=== PATIENT | male | born 1955 | race Caucasian/White ===

== ENCOUNTER 2018-01-05 07:35 | Inpatient (IN) | payer BC ==
[2018-01-05] MEDS ORDERED: Sodium Chloride 0.9% 2.5 ML Syringe FLUSH PRN (07:38)
[2018-01-05] MEDS ORDERED: Sodium Chloride 0.9% 10 ML Syringe FLUSH PRN (07:38)
--- NOTE | 2018-01-05 07:54 | EDM.PDOC ---
ED HPI GENERAL MEDICAL PROBLEM - General Chief Complaint: Neuro Symptoms/Deficits Stated Complaint: POSSIBLE STROKE Time Seen by Provider: 01/05/18 07:39 Source of Information: Reports: Patient History Limitations: Reports: No Limitations - History of Present Illness INITIAL COMMENTS - FREE TEXT/NARRATIVE: History of present illness: []Patient was in his usual state of health last night when he went to bed at 10 PM and awoke at 5:30 with right-sided visual loss, he also complains of right arm numbness and tingling and right leg weakness Review of systems: As per history of present illness and below otherwise all systems reviewed and negative. Past medical history: As per history of present illness and as reviewed below otherwise noncontributory. Surgical history: As per history of present illness and as reviewed below otherwise noncontributory. Social history: No reported history of drug or alcohol abuse. Family history: As per history of present illness and as reviewed below otherwise noncontributory. Physical exam: General: Well developed, well nourished in NAD HEENT: Atraumatic, normocephalic, pupils reactive, negative for conjunctival pallor or scleral icterus, mucous membranes moist, throat clear, neck supple, nontender, trachea midline. Lungs: Clear to auscultation, breath sounds equal bilaterally, chest nontender. Heart: S1S2, regular, negative for clicks, rubs, or JVD. Abdomen: Soft, nondistended, nontender. Negative for masses or hepatosplenomegaly. Negative for costovertebral tenderness. Pelvis: Stable nontender. Genitourinary: Deferred. Rectal: Deferred. Extremities: Atraumatic, negative for cords or calf pain. Neurovascular unremarkable. Neuro: Awake, alert, oriented. Patient is unable to see the right peripheral vision out of his right eye, he has no ocular paralysis noted there is a drift of his right arm sensations intact Diagnostics: []CT is negative, CT angiogram shows occlusion of right vertebral and posterior cerebral arteries Therapeutics: []Dr. Tompkins was consulted and evaluated the patient bedside. CTA was ordered and resulted prior to her leaving she would like the patient to be admitted with regular stroke orders will be consulting Impression: []CVA Plan: []Admit to Dr. Muñoz Definitive disposition and diagnosis as appropriate pending reevaluation and review of above. - Related Data Allergies Allergy/AdvReac Type Severity Reaction Status Date / Time No Known Allergies Allergy Verified 01/05/18 07:56 Social & Family History - Tobacco Use Smoking Status *Q: Never Smoker Second Hand Smoke Exposure: No - Caffeine Use Caffeine Use: Reports: Other ED ROS GENERAL - Review of Systems Review Of Systems: See Below (See history of present illness) ED EXAM, NEURO - Physical Exam Exam: See Below (See history of present illness) Course - Vital Signs Last Recorded V/S: Last Vital Signs Temp 97.1 F 01/05/18 12:54 Pulse 73 01/05/18 12:54 Resp 18 01/05/18 12:54 BP 119/97 H 01/05/18 12:54 Pulse Ox 93 L 01/05/18 12:54 - Orders/Labs/Meds Orders: Active Orders 24 hr Category Date Time Status Assess Neurological Status [RC] Q4H Care 01/05/18 07:38 Active Bedrest [RC] ASDIRECTED Care 01/05/18 07:38 Active Cardiac Monitoring [RC] . DIRECTED Care 01/05/18 07:38 Inactive NIH Stroke Scale [RC] Q4H Care 01/05/18 07:38 Active Oxygen Therapy [RC] ASDIRECTED Care 01/05/18 07:38 Active Vital Signs [RC] Q4H Care 01/05/18 07:38 Active Brain wo Cont [MR] Stat Exams 01/05/18 08:46 Taken Head wo Cont [CT] Stat Exams 01/05/18 07:38 Taken Sodium Chloride 0.9% [Saline Flush] Med 01/05/18 07:38 Active 10 ml FLUSH ASDIRECTED PRN Sodium Chloride 0.9% [Saline Flush] Med 01/05/18 07:38 Active 2.5 ml FLUSH ASDIRECTED PRN Peripheral IV Insertion Adult [OM.PC] Stat Oth 01/05/18 07:38 Ordered Peripheral IV Insertion Adult [OM.PC] Stat Oth 01/05/18 07:38 Ordered Medication Orders Atorvastatin Calcium (Lipitor) 80 mg PO BEDTIME ALONSO Sodium Chloride (Saline Flush) 10 ml FLUSH ASDIRECTED PRN PRN Reason: Keep Vein Open Sodium Chloride (Saline Flush) 2.5 ml FLUSH ASDIRECTED PRN PRN Reason: Keep Vein Open Labs: Laboratory Tests 01/05/18 01/05/1818 Range/Units 07:35 07:35 07:35 WBC 10.25 (4.0-11.0) K/uL RBC 5.33 (4.50-5.90) M/uL Hgb 15.9 (13.0-17.0) g/dL Hct 45.9 (38.0-50.0) % MCV 86.1 (80.0-98.0) fL MCH 29.8 (27.0-32.0) pg MCHC 34.6 (31.0-37.0) g/dL RDW Std Deviation 45.3 (28.0-62.0) fl RDW Coeff of Marcella 15 (11.0-15.0) % Plt Count 233 (150-400) K/uL MPV 11.30 (7.40-12.00) fL Neut % (Auto) 50.9 (48.0-80.0) % Lymph % (Auto) 36.2 (16.0-40.0) % [place] % (Auto) 8.7 (0.0-15.0) % Eos % (Auto) 4.0 (0.0-7.0) % Baso % (Auto) 0.2 (0.0-1.5) % Neut # (Auto) 5.2 (1.4-5.7) K/uL Lymph # (Auto) 3.7 H (0.6-2.4) K/uL Sherman # (Auto) 0.9 H (0.0-0.8) K/uL Eos # (Auto) 0.4 (0.0-0.7) K/uL Baso # (Auto) 0.0 (0.0-0.1) K/uL Nucleated RBC % 0.0 /100WBC Nucleated RBCs # 0 K/uL INR 0.98 APTT 25.2 (18.6-31.3) SEC Sodium 140 (136-148) mmol/L Potassium 3.9 (3.5-5.1) mmol/L Chloride 104 (98-107) mmol/L Carbon Dioxide 28.4 (21.0-32.0) mmol/L BUN 26 H (7.0-18.0) mg/dL Creatinine 1.2 (0.8-1.3) mg/dL Est Cr Clr Drug Dosing 66.24 mL/min Estimated GFR (MDRD) > 60.0 ml/min Glucose 136 H (74-106) mg/dL Calcium 9.6 (8.5-10.1) mg/dL Total Bilirubin 0.7 (0.2-1.0) mg/dL AST 25 (15-37) IU/L ALT 46 (14-63) IU/L Alkaline Phosphatase 69 (46-116) U/L Troponin I < 0.050 (0.000-0.056) ng/mL Total Protein 7.3 (6.4-8.2) g/dL Albumin 4.2 (3.4-5.0) g/dL Globulin 3.1 (2.0-3.5) g/dL Albumin/Globulin Ratio 1.4 (1.3-2.8) TSH 3rd Generation 4.50 H (0.36-3.74) uIU/mL Meds: Medications Generic Name Dose Route Start Last Admin Trade Name Freq PRN Reason Stop Dose Admin Atorvastatin Calcium 80 mg 01/05/18 21:00 Lipitor PO BEDTIME ALONSO Sodium Chloride 10 ml 01/05/18 07:38 Saline Flush FLUSH ASDIRECTED PRN Keep Vein Open Sodium Chloride 2.5 ml 01/05/18 07:38 Saline Flush FLUSH ASDIRECTED PRN Keep Vein Open Departure - Departure Time of Disposition: 11:00 Disposition: Admitted As Inpatient 64 Condition: Fair Clinical Impression: CVA (cerebral vascular accident) Qualifiers: CVA mechanism: occlusion Precerebral and cerebral artery: posterior cerebral artery Laterality of affected vessel: right Qualified Code(s): I63.531 - Cerebral infarction due to unspecified occlusion or stenosis of right posterior cerebral artery - Discharge Information - My Orders Last 24 Hours: My Active Orders 01/05/18 07:38 Assess Neurological Status [RC] Q4H Bedrest [RC] ASDIRECTED Cardiac Monitoring [RC] . DIRECTED NIH Stroke Scale [RC] Q4H Oxygen Therapy [RC] ASDIRECTED Vital Signs [RC] Q4H Head wo Cont [CT] Stat Sodium Chloride 0.9% [Saline Flush] 10 ml FLUSH ASDIRECTED PRN Sodium Chloride 0.9% [Saline Flush] 2.5 ml FLUSH ASDIRECTED PRN Peripheral IV Insertion Adult [OM.PC] Stat Peripheral IV Insertion Adult [OM.PC] Stat 01/05/18 08:46 Brain wo Cont [MR] Stat - Assessment/Plan Last 24 Hours: My Active Orders 01/05/18 07:38 Assess Neurological Status [RC] Q4H Bedrest [RC] ASDIRECTED Cardiac Monitoring [RC] . DIRECTED NIH Stroke Scale [RC] Q4H Oxygen Therapy [RC] ASDIRECTED Vital Signs [RC] Q4H Head wo Cont [CT] Stat Sodium Chloride 0.9% [Saline Flush] 10 ml FLUSH ASDIRECTED PRN Sodium Chloride 0.9% [Saline Flush] 2.5 ml FLUSH ASDIRECTED PRN Peripheral IV Insertion Adult [OM.PC] Stat Peripheral IV Insertion Adult [OM.PC] Stat 01/05/18 08:46 Brain wo Cont [MR] Stat
[2018-01-05 08:20] LABS: CHLORIDE,CL 104 mmol/L (98-107); SODIUM,NA 140 mmol/L (136-148)
--- NOTE | 2018-01-05 09:44 | CT ---
EXAMINATION: CTA head HISTORY: Vision loss COMPARISON: CT head from the same day TECHNIQUE: Axial CT images obtained through the head following the administration of 100 mL of Isovue -370 in the right antecubital fossa. Coronal, sagittal, and MIP reconstructions obtained. FINDINGS: There is no mass, mass effect, or midline shift. No extra-axial fluid collections. Ventricl es and sulci are symmetric. Mucous retention cyst noted within the right maxillary sinus. Mastoid air cells and middle ears are otherwise unremarkable. Orbits and globes are symmetric. The distal internal carotid arteries are normal. The left vertebral artery is patent. The right verte bral artery is occluded. The right PICA is not identified. The left posterior cerebral artery is occl uded at the end of the quadrigeminal cistern. This corresponds to the hyperdense findings within the remaining PHYSICS TUTOR on the corresponding noncontrast head CT. There is relative hypoenhancement of the medi al and inferior left occipital lobe. The basilar and right posterior cerebral artery otherwise appear normal. The anterior and middle cerebral arteries are normal. Posterior communicating arteries are n ot well identified. IMPRESSION: 1. Occlusion of the right vertebral and mid left posterior cerebral arteries.
--- NOTE | 2018-01-05 12:41 | PCM.HP ---
H&P History of Present Illness - General Date of Service: 01/05/18 Admit Problem/Dx: Admission Diagnosis/Problem Admission Diagnosis/Problem CVA, Cerebrovascular accident Source of Information: Patient History Limitations: Reports: No Limitations - History of Present Illness Initial Comments - Free Text/Narative: 62 yo male admitted for CVA. Patient states he woke up this morning at around 5: 30 am and had loss of vision of his right vision field of both eyes. He also noticed partial numbness with mild weakness of his right side. He denies any associated speech difficulty, hearing loss, syncope, headache, nausea, vomiting , chest pain, palpitations, swelling, orthopnea or syncope. He denies any symptoms prior to going to sleep. He states he was feeling well and denies any recent illnesses. Once he woke up he contacted his friend who brought him to the ED. Other than the vision loss, right numbness and right weakness he has no other complaints or concerns. His primary residence is in [place] and he is in [place] for work. His PCP is in [place] as well. Patient states he has HTN and possible history of heart disease. He states he is on multiple medications but is unsure which ones. He denies history of tobacco use. He admits to drinking 1 alcohol beverage daily. - Related Data Allergies/Adverse Reactions: Allergies Allergy/AdvReac Type Severity Reaction Status Date / Time No Known Allergies Allergy Verified 01/05/18 07:56 Home Medications: Home Meds Aspirin 81 mg PO DAILY 01/05/18 [History] Ezetimibe 10 mg PO DAILY 01/05/18 [History] Hydrochlorothiazide 50 mg PO DAILY 01/05/18 [History] Levothyroxine Sodium [Levo-T] 50 mcg PO DAILY 01/05/18 [History] Metoprolol Succinate 100 mg PO DAILY 01/05/18 [History] Pravastatin Sodium 80 mg PO BEDTIME 01/05/18 [History] amLODIPine Besylate [Amlodipine Besylate] 10 mg PO DAILY 01/05/18 [History] Past Medical History Cardiovascular History: Reports: Hypertension Social & Family History - Tobacco Use Smoking Status *Q: Never Smoker Second Hand Smoke Exposure: No - Caffeine Use Caffeine Use: Reports: Other - Alcohol Use Days Per Week of Alcohol Use: 7 Number of Drinks Per Day: 1 Total Drinks Per Week: 7 Date of Last Drink: 01/04/18 - Recreational Drug Use Recreational Drug Use: No H&P Review of Systems - Review of Systems: Review Of Systems: See Below General: Reports: No Symptoms HEENT: Reports: Visual Changes Pulmonary: Reports: No Symptoms Cardiovascular: Reports: No Symptoms Gastrointestinal: Reports: No Symptoms Genitourinary: Reports: No Symptoms Musculoskeletal: Reports: No Symptoms Skin: Reports: No Symptoms Psychiatric: Reports: No Symptoms Neurological: Reports: Numbness, Weakness Hematologic/Lymphatic: Reports: No Symptoms Immunologic: Reports: No Symptoms Exam - Exam Exam: See Below - Vital Signs Vital Signs: Last Vital Signs Temp 36.4 C 01/05/18 10:30 Pulse 67 01/05/18 10:30 Resp 18 01/05/18 10:30 BP 138/84 01/05/18 10:30 Pulse Ox 92 L 01/05/18 10:30 Weight: 90 kg - Exam General: Alert, Oriented, Cooperative HEENT: Conjunctiva Clear, Hearing Intact, Mucosa Moist & Sutton, Nares Patent, Normal Nasal Septum, Posterior Pharynx Clear, Pupils Equal, Pupils Reactive, TMs Clear Neck: Supple, Trachea Midline Lungs: Clear to Auscultation, Normal Respiratory Effort Cardiovascular: Regular Rate, Regular Rhythm GI/Abdominal Exam: Normal Bowel Sounds, Soft, Non-Tender, No Organomegaly Back Exam: Normal Inspection, Full Range of Motion Extremities: Normal Inspection, Normal Range of Motion, Non-Tender, No Pedal Edema, Normal Capillary Refill Skin: Warm, Dry, Intact Neurological: Other (Right homonymous hemianopia, Sensation and motor strength of face intact throughout, no aphasia, CN 2-12 intact, RUE/RLE diminished sensation to pain/temp/vibration, RLE/RUE motor strength intact, LUE/LLE motor and sensation intact, Right finger to nose abnormal, left finger to nose intact , right heel to left perdue intact, left heel to right perdue intact, proprioception intact throughout, left babisnki intact, right babinski abnormal , DTR intact throughtout ) Neuro Extensive - Mental Status: Alert, Oriented x3, Normal Mood/Affect, Normal Cognition, Memory Intact Psychiatric: Alert, Normal Affect, Normal Mood - Patient Data Lab Results Last 24 hrs: Laboratory Results - last 24 hr 01/05/18 01/05/18 01/05/18 Range/Units 07:35 07:35 07:35 WBC 10.25 (4.0-11.0) K/uL RBC 5.33 (4.50-5.90) M/uL Hgb 15.9 (13.0-17.0) g/dL Hct 45.9 (38.0-50.0) % MCV 86.1 (80.0-98.0) fL MCH 29.8 (27.0-32.0) pg MCHC 34.6 (31.0-37.0) g/dL RDW Std Deviation 45.3 (28.0-62.0) fl RDW Coeff of Marcella 15 (11.0-15.0) % Plt Count 233 (150-400) K/uL MPV 11.30 (7.40-12.00) fL Neut % (Auto) 50.9 (48.0-80.0) % Lymph % (Auto) 36.2 (16.0-40.0) % [place] % (Auto) 8.7 (0.0-15.0) % Eos % (Auto) 4.0 (0.0-7.0) % Baso % (Auto) 0.2 (0.0-1.5) % Neut # (Auto) 5.2 (1.4-5.7) K/uL Lymph # (Auto) 3.7 H (0.6-2.4) K/uL [place] # (Auto) 0.9 H (0.0-0.8) K/uL Eos # (Auto) 0.4 (0.0-0.7) K/uL Baso # (Auto) 0.0 (0.0-0.1) K/uL Nucleated RBC % 0.0 /100WBC Nucleated RBCs # 0 K/uL INR 0.98 APTT 25.2 (18.6-31.3) SEC Sodium 140 (136-148) mmol/L Potassium 3.9 (3.5-5.1) mmol/L Chloride 104 (98-107) mmol/L Carbon Dioxide 28.4 (21.0-32.0) mmol/L BUN 26 H (7.0-18.0) mg/dL Creatinine 1.2 (0.8-1.3) mg/dL Est Cr Clr Drug Dosing 66.24 mL/min Estimated GFR (MDRD) > 60.0 ml/min Glucose 136 H (74-106) mg/dL Calcium 9.6 (8.5-10.1) mg/dL Total Bilirubin 0.7 (0.2-1.0) mg/dL AST 25 (15-37) IU/L ALT 46 (14-63) IU/L Alkaline Phosphatase 69 (46-116) U/L Troponin I < 0.050 (0.000-0.056) ng/mL Total Protein 7.3 (6.4-8.2) g/dL Albumin 4.2 (3.4-5.0) g/dL Globulin 3.1 (2.0-3.5) g/dL Albumin/Globulin Ratio 1.4 (1.3-2.8) TSH 3rd Generation 4.50 H (0.36-3.74) uIU/mL Result Diagrams: 01/05/18 07:35 01/05/18 07:35 Problem List Initiated/Reviewed/Updated: Yes Orders Last 24hrs: Active Orders 24 hr Category Date Time Status Patient Status [ADT] Stat ADT 01/05/18 09:20 Active Assess Neurological Status [RC] Q4H Care 01/05/18 07:38 Active Bedrest [RC] ASDIRECTED Care 01/05/18 07:38 Active Cardiac Monitoring [RC] . DIRECTED Care 01/05/18 07:38 Inactive NIH Stroke Scale [RC] Q4H Care 01/05/18 07:38 Active Oxygen Therapy [RC] ASDIRECTED Care 01/05/18 07:38 Active Telemetry Monitoring [Cardiac Monitoring] [RC] . Care 01/05/18 10:02 Active DIRECTED Vital Signs [RC] Q4H Care 01/05/18 07:38 Active Brain wo Cont [MR] Stat Exams 01/05/18 08:46 Ordered Head wo Cont [CT] Stat Exams 01/05/18 07:38 Taken Sodium Chloride 0.9% [Saline Flush] Med 01/05/18 07:38 Active 10 ml FLUSH ASDIRECTED PRN Sodium Chloride 0.9% [Saline Flush] Med 01/05/18 07:38 Active 2.5 ml FLUSH ASDIRECTED PRN Peripheral IV Insertion Adult [OM.PC] Stat Oth 01/05/18 07:38 Ordered Peripheral IV Insertion Adult [OM.PC] Stat Oth 01/05/18 07:38 Ordered Medication Orders Sodium Chloride (Saline Flush) 10 ml FLUSH ASDIRECTED PRN PRN Reason: Keep Vein Open Sodium Chloride (Saline Flush) 2.5 ml FLUSH ASDIRECTED PRN PRN Reason: Keep Vein Open Assessment/Plan Comment:: #CVA -duration unknown, patient awoke with symptoms -Neuro exam: Right homonymous hemianopia, Sensation and motor strength of face intact throughout, no aphasia, CN 2-12 intact, RUE/RLE diminished sensation to pain/temp/vibration, RLE/RUE motor strength intact, LUE/LLE motor and sensation intact, Right finger to nose abnormal, left finger to nose intact, right heel to left perdue intact, left heel to right perdue intact, proprioception intact throughout, left babisnki intact, right babinski abnormal, DTR intact throughout -CTA reveals occlusion of right vertebral, mid-left posterior cerebral arteries & hypoenhancement at occipital lobe -Swallow eval normal -neuro consulted in ED Plan: -admit to inpatient -allow permissive HTN -ASA & Plavix -Lipid Panel -Carotid US -Echo -resume home pravastatin -PT/Ot consult -as per neuro #Elevated TSH #Hx Hypothyroidism -resume home levothyroxine -obtain Free T4 #HTN -allow permissive HTN -home home bp meds
--- NOTE | 2018-01-05 12:44 | PCM.CONS ---
H&P History of Present Illness - General Date of Service: 01/05/18 Admit Problem/Dx: Admission Diagnosis/Problem Admission Diagnosis/Problem CVA, Cerebrovascular accident - History of Present Illness Initial Comments - Free Text/Narative: He woke up this morning with right arm and leg weakness, numbness, and impaired vision on the right side. He has frontal headache as well. Symptoms were present upon awakening at 5:30 am. He did not have symptoms when he went to bed at 10:00 last night. He takes a baby ASA - Related Data Allergies/Adverse Reactions: Allergies Allergy/AdvReac Type Severity Reaction Status Date / Time No Known Allergies Allergy Verified 01/05/18 07:56 Past Medical History Cardiovascular History: Reports: Hypertension Social & Family History - Tobacco Use Smoking Status *Q: Never Smoker Other Tobacco Use Within Last Twelve Months: chewing tobacco Second Hand Smoke Exposure: No - Caffeine Use Caffeine Use: Reports: Other - Alcohol Use Days Per Week of Alcohol Use: 7 Number of Drinks Per Day: 1 Total Drinks Per Week: 7 Date of Last Drink: 01/04/18 - Recreational Drug Use Recreational Drug Use: No H&P Review of Systems - Review of Systems: Review Of Systems: See Below General: Reports: No Symptoms HEENT: Reports: Headaches Pulmonary: Reports: No Symptoms Cardiovascular: Reports: Lightheadedness Gastrointestinal: Reports: No Symptoms Musculoskeletal: Reports: No Symptoms Neurological: Reports: Dizziness, Headache, Numbness Hematologic/Lymphatic: Reports: No Symptoms Exam - Exam Exam: See Below - Vital Signs Vital Signs: Last Vital Signs Temp 36.4 C 01/05/18 10:30 Pulse 67 01/05/18 10:30 Resp 18 01/05/18 10:30 BP 138/84 01/05/18 10:30 Pulse Ox 92 L 01/05/18 10:30 Weight: 90 kg - Exam Physical Exam Comments:: Constitutional: No acute distress Neurological: Mental Status: General: Normal activity, good hygiene, appropriate appearance. Level of consciousness: Awake, alert. Orientation: Oriented to person, place, time and situation. Concentration/Attention Span: Normal. Comprehension/Praxis: Able to perform a three step command. Fund of Knowledge/memory: Adequate recent and remote recall. Language: Fluent and articulate. Naming and repetition intact Thought Content: Normal. Insight/Judgement: Normal. Cranial Nerves: Pupils equally round and reactive to light. Right homonymous hemianopsia. Gaze conjugate, EOMI. Sensation intact and symmetric to light touch. Mild right facial droop, mild dysarthria. Palate elevates symmetrically. Normal shrug bilaterally. Tongue full strength Motor: Normal tone in all groups. Right pronator drift. Power using MRC scale and R/L notation as follows: Deltoid 5/5, biceps 5/5, triceps 5/5, wrist extensors 5/5, wrist flexors 5/5, finger extensors 4/5, FDI 4/5, hip flexors 4/5 , knee extensors 4+/5, knee flexors 4/5, ankle dorsiflexors 5/5 Sensation: Sensation is decreased to temp right foot, decreased vibratory sense right hand and foot. Deep tendon reflexes: Normoactive throughout. Coordination: Finger to nose revealed dysmetria on the right, heel to perdue impaired on the right may be due to weakness HEENT: Eyes: non icteric, Mouth: moist mucus membranes Cardiovascular: RRR, no carotid bruits Respiratory: clear lungs GI: non tender Musculoskeletal: non tender Skin: no visible rash - Patient Data Lab Results Last 24 hrs: Laboratory Results - last 24 hr 01/05/18 01/05/18 01/05/18 Range/Units 07:35 07:35 07:35 WBC 10.25 (4.0-11.0) K/uL RBC 5.33 (4.50-5.90) M/uL Hgb 15.9 (13.0-17.0) g/dL Hct 45.9 (38.0-50.0) % MCV 86.1 (80.0-98.0) fL MCH 29.8 (27.0-32.0) pg MCHC 34.6 (31.0-37.0) g/dL RDW Std Deviation 45.3 (28.0-62.0) fl RDW Coeff of Marcella 15 (11.0-15.0) % Plt Count 233 (150-400) K/uL MPV 11.30 (7.40-12.00) fL Neut % (Auto) 50.9 (48.0-80.0) % Lymph % (Auto) 36.2 (16.0-40.0) % [place] % (Auto) 8.7 (0.0-15.0) % Eos % (Auto) 4.0 (0.0-7.0) % Baso % (Auto) 0.2 (0.0-1.5) % Neut # (Auto) 5.2 (1.4-5.7) K/uL Lymph # (Auto) 3.7 H (0.6-2.4) K/uL [place] # (Auto) 0.9 H (0.0-0.8) K/uL Eos # (Auto) 0.4 (0.0-0.7) K/uL Baso # (Auto) 0.0 (0.0-0.1) K/uL Nucleated RBC % 0.0 /100WBC Nucleated RBCs # 0 K/uL INR 0.98 APTT 25.2 (18.6-31.3) SEC Sodium 140 (136-148) mmol/L Potassium 3.9 (3.5-5.1) mmol/L Chloride 104 (98-107) mmol/L Carbon Dioxide 28.4 (21.0-32.0) mmol/L BUN 26 H (7.0-18.0) mg/dL Creatinine 1.2 (0.8-1.3) mg/dL Est Cr Clr Drug Dosing 66.24 mL/min Estimated GFR (MDRD) > 60.0 ml/min Glucose 136 H (74-106) mg/dL Calcium 9.6 (8.5-10.1) mg/dL Total Bilirubin 0.7 (0.2-1.0) mg/dL AST 25 (15-37) IU/L ALT 46 (14-63) IU/L Alkaline Phosphatase 69 (46-116) U/L Troponin I < 0.050 (0.000-0.056) ng/mL Total Protein 7.3 (6.4-8.2) g/dL Albumin 4.2 (3.4-5.0) g/dL Globulin 3.1 (2.0-3.5) g/dL Albumin/Globulin Ratio 1.4 (1.3-2.8) TSH 3rd Generation 4.50 H (0.36-3.74) uIU/mL Result Diagrams: 01/05/18 07:35 01/05/18 07:35 Imaging Impressions Last 24 hrs: CT head hyperdense left ANIMAL KEEPER CTA head and neck occlusion of right vertebral and left ANIMAL KEEPER Posterior circulation stroke: CTA showed occlusion and likely thrombus of the left ANIMAL KEEPER, occlusion of the right vertebral artery Consult PN Assessment/Plan Problem List Initiated/Reviewed/Updated: Yes My Orders Last 24 Hours: Posterior circulation stroke: CTA showed occlusion and likely thrombus of the left ANIMAL KEEPER, occlusion of the right vertebral artery -IV TPA he is not a candidate as symptoms onset > 4.5 hour -6 hour thrombectomy window: not a candidate as symptoms present > 6 hours -6 -24 hour window thrombectomy: no thrombus in ICA or MCA Recommendations: -Transthoracic echocardiogram -Continue ASA 81 mg daily, add Plavix 75 mg daily (dual antiplatelet indicated given apparent vertebral stenosis / occlusion). -permissive HTN -MRI brain w contrast -telemetry -PT/OT/speech -lipids, Hgb A1c -start atorvastatin 80 mg daily -neuro checks per protocol
--- NOTE | 2018-01-05 13:03 | MR ---
EXAMINATION: MR of the head without contrast. TECHNIQUE: Multiplanar multisequence imaging of the head without intravenous contrast. Diffusion weig hted sequences were performed. HISTORY: Right-sided vision loss. FINDINGS: There is abnormal diffusion restriction within the posterior left thalamus extending posteriorly massiel g the posterior horn of the left lateral ventricle extending along the occipital horn. This is consis tent with an infarct. There is increased susceptibility along the left posterior cerebral artery cons istent with thrombus. Flow void is absent within the visualized distal right vertebral artery. There is no mass, mass effect, midline shift. Moderate periventricular and subcortical white matter FLAIR i ntensities are noted. Trace fluid is noted within the mastoid air cells. Mild mucosal thickening with in the paranasal sinuses. No extra-axial fluid collection. Orbits and globes are symmetric. The midb rain and cerebellum are normal. Cerebellar pontine angles and craniocervical junction are normal. Mid line structures are otherwise preserved. IMPRESSION: 1. Left posterior thalamic to left posterior periventricular infarct is noted. 2. Mild to moderate small vessel ischemic changes.
[2018-01-05] MEDS: Clopidogrel 75 MG Tab PO SCH (13:31)
[2018-01-05] MEDS: Aspirin 81 MG Tab.Chew PO SCH (13:31)
[2018-01-05] MEDS ORDERED: Iopamidol 755 MG/ML 500 ML Multipack Bottle IVPUSH ONE (14:12)
[2018-01-05] MEDS: Carboxymethylcellulose Sodium 0.5% Ophth Soln 0.4 ML UD Box of 30 EYEBOTH PRN (18:19)
[2018-01-05] MEDS: atorvaSTATin 40 MG Tab PO SCH (21:30)
[2018-01-06 05:46] LABS: CHLORIDE,CL 108 mmol/L (98-107); SODIUM,NA 142 mmol/L (136-148)
[2018-01-06] MEDS: Aspirin 81 MG Tab.Chew PO SCH (08:05)
[2018-01-06] MEDS: Clopidogrel 75 MG Tab PO SCH (08:05)
--- NOTE | 2018-01-06 10:04 | PCM.CONSN ---
- General Info Date of Service: 01/06/18 Admission Dx/Problem (Free Text): Admission Diagnosis/Problem Admission Diagnosis/Problem CVA, Cerebrovascular accident Subjective Update: He notes no change in vision or strenght. No new symptoms. - Patient Data Vitals - Most Recent: Last Vital Signs Temp 36.8 C 01/06/18 08:00 Pulse 72 01/06/18 08:00 Resp 18 01/06/18 08:00 BP 143/80 H 01/06/18 08:00 Pulse Ox 93 L 01/06/18 08:00 Weight - Most Recent: 90 kg I&O - Last 24 Hours: Intake & Output 01/05/18 01/06/18 01/06/18 22:59 06:59 14:59 Intake Total 300 450 Output Total 0 Balance 300 450 Lab Results Last 24 Hours: Laboratory Results - last 24 hr 01/05/18 01/05/18 01/06/18 Range/Units 07:35 13:11 04:55 WBC 8.85 (4.0-11.0) K/uL RBC 4.89 (4.50-5.90) M/uL Hgb 14.6 (13.0-17.0) g/dL Hct 42.0 (38.0-50.0) % MCV 85.9 (80.0-98.0) fL MCH 29.9 (27.0-32.0) pg MCHC 34.8 (31.0-37.0) g/dL RDW Std Deviation 45.0 (28.0-62.0) fl RDW Coeff of Marcella 14 (11.0-15.0) % Plt Count 218 (150-400) K/uL MPV 11.10 (7.40-12.00) fL Neut % (Auto) 59.5 (48.0-80.0) % Lymph % (Auto) 30.5 (16.0-40.0) % [place] % (Auto) 7.0 (0.0-15.0) % Eos % (Auto) 2.8 (0.0-7.0) % Baso % (Auto) 0.2 (0.0-1.5) % Neut # (Auto) 5.3 (1.4-5.7) K/uL Lymph # (Auto) 2.7 H (0.6-2.4) K/uL [place] # (Auto) 0.6 (0.0-0.8) K/uL Eos # (Auto) 0.3 (0.0-0.7) K/uL Baso # (Auto) 0.0 (0.0-0.1) K/uL Nucleated RBC % 0.0 /100WBC Nucleated RBCs # 0 K/uL Sodium (136-148) mmol/L Potassium (3.5-5.1) mmol/L Chloride (98-107) mmol/L Carbon Dioxide (21.0-32.0) mmol/L BUN (7.0-18.0) mg/dL Creatinine (0.8-1.3) mg/dL Est Cr Clr Drug Dosing mL/min Estimated GFR (MDRD) ml/min Glucose (74-106) mg/dL Hemoglobin A1c 6.4 H (4.5-6.2) % Calcium (8.5-10.1) mg/dL Triglycerides 241 H (0-200) mg/dL Cholesterol 170 (50-200) mg/dL LDL Cholesterol, Calc 85 (60-180) mg/dL VLDL Cholesterol 48 (5-55) mg/dL HDL Cholesterol 37 L (40-60) mg/dL Cholesterol/HDL Ratio 4.6 (3.3-6.0) Free T4 0.95 (0.76-1.46) ng/dL 01/06/18 Range/Units 04:55 WBC (4.0-11.0) K/uL RBC (4.50-5.90) M/uL Hgb (13.0-17.0) g/dL Hct (38.0-50.0) % MCV (80.0-98.0) fL MCH (27.0-32.0) pg MCHC (31.0-37.0) g/dL RDW Std Deviation (28.0-62.0) fl RDW Coeff of Marcella (11.0-15.0) % Plt Count (150-400) K/uL MPV (7.40-12.00) fL Neut % (Auto) (48.0-80.0) % Lymph % (Auto) (16.0-40.0) % [place] % (Auto) (0.0-15.0) % Eos % (Auto) (0.0-7.0) % Baso % (Auto) (0.0-1.5) % Neut # (Auto) (1.4-5.7) K/uL Lymph # (Auto) (0.6-2.4) K/uL [place] # (Auto) (0.0-0.8) K/uL Eos # (Auto) (0.0-0.7) K/uL Baso # (Auto) (0.0-0.1) K/uL Nucleated RBC % /100WBC Nucleated RBCs # K/uL Sodium 142 (136-148) mmol/L Potassium 3.5 (3.5-5.1) mmol/L Chloride 108 H (98-107) mmol/L Carbon Dioxide 27.1 (21.0-32.0) mmol/L BUN 21 H (7.0-18.0) mg/dL Creatinine 1.1 (0.8-1.3) mg/dL Est Cr Clr Drug Dosing 65.64 mL/min Estimated GFR (MDRD) > 60.0 ml/min Glucose 116 H (74-106) mg/dL Hemoglobin A1c (4.5-6.2) % Calcium 8.9 (8.5-10.1) mg/dL Triglycerides (0-200) mg/dL Cholesterol (50-200) mg/dL LDL Cholesterol, Calc (60-180) mg/dL VLDL Cholesterol (5-55) mg/dL HDL Cholesterol (40-60) mg/dL Cholesterol/HDL Ratio (3.3-6.0) Free T4 (0.76-1.46) ng/dL Med Orders - Current: Current Medications Artificial Tears (Refresh Plus 0.5%) 0 each EYEBOTH ASDIRECTED PRN PRN Reason: Dry Eyes Last Admin: 01/05/18 18:19 Dose: 1 drop Aspirin (Aspirin) 81 mg PO DAILY [facility] Last Admin: 01/06/18 08:05 Dose: 81 mg Atorvastatin Calcium (Lipitor) 80 mg PO BEDTIME [facility] Last Admin: 01/05/18 21:30 Dose: 80 mg Clopidogrel Bisulfate (Plavix) 75 mg PO DAILY [facility] Last Admin: 01/06/18 08:05 Dose: 75 mg Sodium Chloride (Saline Flush) 10 ml FLUSH ASDIRECTED PRN PRN Reason: Keep Vein Open Sodium Chloride (Saline Flush) 2.5 ml FLUSH ASDIRECTED PRN PRN Reason: Keep Vein Open Discontinued Medications Iopamidol (Isovue Multipack-370 (76%)) 100 ml IVPUSH ONETIME ONE Stop: 01/05/18 14:13 Last Admin: 01/05/18 14:13 Dose: 100 ml - Exam Physical Findings Comments:: Constitutional: No acute distress Neurological: Mental Status: General: Normal activity, good hygiene, appropriate appearance. Level of consciousness: Awake, alert. Paucity of speech, but no clear deficits. Cranial Nerves: . Right homonymous hemianopsia. Gaze conjugate, EOMI. Sensation intact and symmetric to light touch. Mild right facial droop, mild dysarthria. Palate elevates symmetrically. Motor: Normal tone in all groups. Right pronator drift. Power using MRC scale and R/L notation as follows: Deltoid 5/5, biceps 5/5, triceps 5/5, wrist extensors 5/5, wrist flexors 5/5, finger extensors 4+/5, FDI 4/5, hip flexors 4+ /5, knee extensors 5/5, knee flexors 4+/5, ankle dorsiflexors 5/5 Sensation: Sensation is decreased to light touch right arm and leg Coordination: Finger to nose dysmetria on the right, heel to perdue impaired on the right may be due to weakness Results MRI brain 01/05/2018 showed acute infarct involving left thalamus and periventricular white matter CT head 01/05/2018 hyperdense left [employer] CTA head 01/05/2018 occlusion of right vertebral and left COPYWRITER Consult PN Assessment/Plan Problem List Initiated/Reviewed/Updated: Yes My Orders Last 24 Hours: L COPYWRITER stroke: CTA showed occlusion and likely thrombus of the left COPYWRITER, occlusion of the right vertebral artery. Proximal verebral arteries not visualized, so I recommend CTA neck, which I discussed with Dr. Louise. LDL 85, Hgb A1c 6.4 Recommendation -CTA neck -continue atorvastatin 80 mg daily -continue ASA, Plavix -TTE results pending -continue telemetry, I recommend 30 monitor if inpatient eval unrevealing -PT/OT pending, he lives near [place] where there is an inpatient rehab facility , which may be good place for him
[2018-01-06] MEDS ORDERED: Iopamidol 755 MG/ML 500 ML Multipack Bottle IVPUSH STA (10:46)
--- NOTE | 2018-01-06 11:23 | PCM.PN ---
- General Info Date of Service: 01/06/18 Admission Dx/Problem (Free Text): Admission Diagnosis/Problem Admission Diagnosis/Problem CVA, Cerebrovascular accident Subjective Update: Patient states no improvement of vision, numbness or weakness. Functional Status: Reports: Pain Controlled, Tolerating Diet, Ambulating, Urinating - Review of Systems General: Reports: No Symptoms HEENT: Reports: Visual Changes Pulmonary: Reports: No Symptoms Cardiovascular: Reports: No Symptoms Gastrointestinal: Reports: No Symptoms Genitourinary: Reports: No Symptoms Musculoskeletal: Reports: No Symptoms Skin: Reports: No Symptoms Neurological: Reports: Numbness, Weakness Psychiatric: Reports: No Symptoms - Patient Data Vitals - Most Recent: Last Vital Signs Temp 36.8 C 01/06/18 08:00 Pulse 72 01/06/18 08:00 Resp 18 01/06/18 08:00 BP 143/80 H 01/06/18 08:00 Pulse Ox 93 L 01/06/18 08:00 Weight - Most Recent: 90 kg I&O - Last 24 Hours: Intake & Output 01/05/18 01/06/18 01/06/18 22:59 06:59 14:59 Intake Total 300 450 Output Total 0 Balance 300 450 Lab Results Last 24 Hours: Laboratory Results - last 24 hr 01/05/18 01/05/18 01/06/18 Range/Units 07:35 13:11 04:55 WBC 8.85 (4.0-11.0) K/uL RBC 4.89 (4.50-5.90) M/uL Hgb 14.6 (13.0-17.0) g/dL Hct 42.0 (38.0-50.0) % MCV 85.9 (80.0-98.0) fL MCH 29.9 (27.0-32.0) pg MCHC 34.8 (31.0-37.0) g/dL RDW Std Deviation 45.0 (28.0-62.0) fl RDW Coeff of Marcella 14 (11.0-15.0) % Plt Count 218 (150-400) K/uL MPV 11.10 (7.40-12.00) fL Neut % (Auto) 59.5 (48.0-80.0) % Lymph % (Auto) 30.5 (16.0-40.0) % [place] % (Auto) 7.0 (0.0-15.0) % Eos % (Auto) 2.8 (0.0-7.0) % Baso % (Auto) 0.2 (0.0-1.5) % Neut # (Auto) 5.3 (1.4-5.7) K/uL Lymph # (Auto) 2.7 H (0.6-2.4) K/uL [place] # (Auto) 0.6 (0.0-0.8) K/uL Eos # (Auto) 0.3 (0.0-0.7) K/uL Baso # (Auto) 0.0 (0.0-0.1) K/uL Nucleated RBC % 0.0 /100WBC Nucleated RBCs # 0 K/uL Sodium (136-148) mmol/L Potassium (3.5-5.1) mmol/L Chloride (98-107) mmol/L Carbon Dioxide (21.0-32.0) mmol/L BUN (7.0-18.0) mg/dL Creatinine (0.8-1.3) mg/dL Est Cr Clr Drug Dosing mL/min Estimated GFR (MDRD) ml/min Glucose (74-106) mg/dL Hemoglobin A1c 6.4 H (4.5-6.2) % Calcium (8.5-10.1) mg/dL Triglycerides 241 H (0-200) mg/dL Cholesterol 170 (50-200) mg/dL LDL Cholesterol, Calc 85 (60-180) mg/dL VLDL Cholesterol 48 (5-55) mg/dL HDL Cholesterol 37 L (40-60) mg/dL Cholesterol/HDL Ratio 4.6 (3.3-6.0) Free T4 0.95 (0.76-1.46) ng/dL 01/06/18 Range/Units 04:55 WBC (4.0-11.0) K/uL RBC (4.50-5.90) M/uL Hgb (13.0-17.0) g/dL Hct (38.0-50.0) % MCV (80.0-98.0) fL MCH (27.0-32.0) pg MCHC (31.0-37.0) g/dL RDW Std Deviation (28.0-62.0) fl RDW Coeff of Marcella (11.0-15.0) % Plt Count (150-400) K/uL MPV (7.40-12.00) fL Neut % (Auto) (48.0-80.0) % Lymph % (Auto) (16.0-40.0) % Major % (Auto) (0.0-15.0) % Eos % (Auto) (0.0-7.0) % Baso % (Auto) (0.0-1.5) % Neut # (Auto) (1.4-5.7) K/uL Lymph # (Auto) (0.6-2.4) K/uL [place] # (Auto) (0.0-0.8) K/uL Eos # (Auto) (0.0-0.7) K/uL Baso # (Auto) (0.0-0.1) K/uL Nucleated RBC % /100WBC Nucleated RBCs # K/uL Sodium 142 (136-148) mmol/L Potassium 3.5 (3.5-5.1) mmol/L Chloride 108 H (98-107) mmol/L Carbon Dioxide 27.1 (21.0-32.0) mmol/L BUN 21 H (7.0-18.0) mg/dL Creatinine 1.1 (0.8-1.3) mg/dL Est Cr Clr Drug Dosing 65.64 mL/min Estimated GFR (MDRD) > 60.0 ml/min Glucose 116 H (74-106) mg/dL Hemoglobin A1c (4.5-6.2) % Calcium 8.9 (8.5-10.1) mg/dL Triglycerides (0-200) mg/dL Cholesterol (50-200) mg/dL LDL Cholesterol, Calc (60-180) mg/dL VLDL Cholesterol (5-55) mg/dL HDL Cholesterol (40-60) mg/dL Cholesterol/HDL Ratio (3.3-6.0) Free T4 (0.76-1.46) ng/dL Med Orders - Current: Current Medications Artificial Tears (Refresh Plus 0.5%) 0 each EYEBOTH ASDIRECTED PRN PRN Reason: Dry Eyes Last Admin: 01/05/18 18:19 Dose: 1 drop Aspirin (Aspirin) 81 mg PO DAILY [facility] Last Admin: 01/06/18 08:05 Dose: 81 mg Atorvastatin Calcium (Lipitor) 80 mg PO BEDTIME [facility] Last Admin: 01/05/18 21:30 Dose: 80 mg Clopidogrel Bisulfate (Plavix) 75 mg PO DAILY [facility] Last Admin: 01/06/18 08:05 Dose: 75 mg Sodium Chloride (Saline Flush) 10 ml FLUSH ASDIRECTED PRN PRN Reason: Keep Vein Open Sodium Chloride (Saline Flush) 2.5 ml FLUSH ASDIRECTED PRN PRN Reason: Keep Vein Open Discontinued Medications Iopamidol (Isovue Multipack-370 (76%)) 100 ml IVPUSH ONETIME ONE Stop: 01/05/18 14:13 Last Admin: 01/05/18 14:13 Dose: 100 ml Iopamidol (Isovue Multipack-370 (76%)) 100 ml IVPUSH ONETIME STA Stop: 01/06/18 10:47 Last Admin: 01/06/18 10:47 Dose: 100 ml - Exam Physical Findings Comments:: General: Alert, Oriented, Cooperative HEENT: Conjunctiva Clear, Hearing Intact, Mucosa Moist & [place], Nares Patent, Normal Nasal Septum, Posterior Pharynx Clear, Pupils Equal, Pupils Reactive, TMs Clear Neck: Supple, Trachea Midline Lungs: Clear to Auscultation, Normal Respiratory Effort Cardiovascular: Regular Rate, Regular Rhythm GI/Abdominal Exam: Normal Bowel Sounds, Soft, Non-Tender, No Organomegaly Back Exam: Normal Inspection, Full Range of Motion Extremities: Normal Inspection, Normal Range of Motion, Non-Tender, No Pedal Edema, Normal Capillary Refill Skin: Warm, Dry, Intact Neurological: Other (Right homonymous hemianopia, Sensation and motor strength of face intact throughout, no aphasia, CN 2-12 intact, RUE/RLE diminished sensation to pain/temp/vibration, RLE/RUE motor strength intact, LUE/LLE motor and sensation intact, Right finger to nose abnormal, left finger to nose intact , right heel to left perdue intact, left heel to right perdue intact, proprioception intact throughout, left babisnki intact, right babinski abnormal , DTR intact throughtout ) Neuro Extensive - Mental Status: Alert, Oriented x3, Normal Mood/Affect, Normal Cognition, Memory Intact Psychiatric: Alert, Normal Affect, Normal Mood - Problem List Review Problem List Initiated/Reviewed/Updated: Yes - My Orders Last 24 Hours: My Active Orders 01/05/18 12:54 CV Carotid Duplex Comp [US] Routine Echo Comp wo Cont [US] Routine 01/05/18 12:57 Consult to Occupational Therapy [OT Evaluation and Treatment] [CONS] Routine PT Evaluation and Treatment [CONS] Routine 01/05/18 13:30 Aspirin 81 mg PO DAILY Clopidogrel [Plavix] 75 mg PO DAILY 01/05/18 17:37 Carboxymethylcellulose Sodium [Refresh Plus 0.5%] 0 each EYEBOTH ASDIRECTED PRN 01/05/18 21:00 atorvaSTATin [Lipitor] 80 mg PO BEDTIME 01/05/18 Dinner Cardiac [Heart Healthy Diet] [DIET] 01/06/18 07:38 CTA Neck W & W/O Contrast [Ang Neck] [CT] Routine - Plan Plan:: #CVA #Right hemianopsia #Right sided Sensory Deficit #Right sided weakness #Hyperlipidemia -neuro consulted in ED -PT/OT consulted -Echo and Carotid US completed, awaiting reading -home ASA resumed, started on Plavix -Lipid panel reveals LDL 80, on Pravastatin 80 mg QD & Ezetimibe 10 mg QD prior to admission -PT/Ot consulted Plan: -allow permissive HTN -continue ASA & Plavix -resume home pravastatin & Ezetimibe -arrange out-patient PT/OT in home town [place] -as per neuro #Elevated TSH #Hx Hypothyroidism -resume home levothyroxine -out-patient f/u with PCP for dose adjustment #HTN -allow permissive HTN -holding home HCTZ 50 mg QD & Toprol 100 mg QD
--- NOTE | 2018-01-06 11:35 | CT ---
EXAMINATION: CTA neck HISTORY: Stroke COMPARISON: CTA head dated 01/05/2018 TECHNIQUE: Axial CT images obtained through the neck following the administration of 100 mL of Isovue -370 in the right antecubital fossa. Coronal and sagittal reconstructions obtained. FINDINGS: There is a normal three-vessel origin and the aortic arch. The right proximal vertebral art gage is occluded. Faint contrast is noted within the mid cervical vertebral artery. There is also bronson t contrast noted within the distal vertebral artery to a greater degree than noted on the day prior. Occlusion of the left posterior cerebral artery is again noted. Adjacent subtle hypodense area within the cerebral cortex. The left vertebral artery appears patent however high-grade focal stenosis at t he origin is likely. The common carotid arteries appear normal. Mild atheromatous changes noted at th e proximal internal carotid arteries bilaterally. No significant stenosis noted. Degenerative changes noted within the cervical spine without acute findings. Apices are clear. The paravertebral soft tissues otherwise appear normal. Mucous retention cyst withi n the right maxillary sinus. IMPRESSION: 1. Essentially occlusion of the right vertebral artery from the origin to the distal aspect. Faint co ntrast is noted at several areas. Given the long segment dissection cannot be excluded. 2. Occlusion of the left posterior cerebral artery again noted. 3. Likely high-grade stenosis of the proximal left vertebral artery secondary to atheromatous changes .
[2018-01-06] MEDS: Levothyroxine 50 MCG Tab PO SCH (11:54)
[2018-01-06] MEDS: Ezetimibe 10 MG Tab PO SCH (11:54)
[2018-01-06] MEDS: Beta-Carotene (Vitamin A) w/Vitamin C & E plus Minerals Tab PO SCH (11:54)
--- NOTE | 2018-01-06 13:51 | CT ---
EXAM DATE: 01/05/18 PATIENT'S AGE: 62 Patient: ABEL WALLACE Facility: [place], [place] Site . Site : 1955 Study: CT Head STROKE PROTOCOL [id number]/14/2018 7:49:20 AM Ordering Physician: Doctor Maddox Final Report: INDICATION: Right eye visual loss. TECHNIQUE: CT head without contrast. COMPARISON: None. FINDINGS: CSF spaces: Within normal limits for age. Brain parenchyma: The york-white differentiation is normal. No sign of mass, hemorrhage, or midline shift. Skull base and calvarium: The visualized paranasal sinuses and mastoid air cells demonstrate no acute or significant findings. The visualized orbits are grossly unremarkable. No skull fractures. IMPRESSION: Unremarkable noncontrast head CT. No sign of acute CVA or other significant finding. Please note that all CT scans at this facility use dose modulation, iterative reconstruction, and/or weight-based dosing when appropriate to reduce radiation dose to as low as reasonably achievable. Dictated by Ray Fong MD @ Jan 05 2018 7:51AM (Electronic Signature) Report Signed by Proxy. [facility] SYSTEM[facility]
--- NOTE | 2018-01-06 13:52 | US ---
EXAM DATE: 01/05/18 PATIENT'S AGE: 62 Patient: ABEL WALLACE Facility: [place], [place] : 1955 Study: US Neck Angio Arterial [id number]/2018 4:55:55 PM Ordering Physician: Wanda Saunders Final Report: CAROTID ULTRASOUND BILATERAL CLINICAL HISTORY: Stroke. TECHNIQUE: The carotid circulations and the vertebral arteries in the neck were examined with york-scale ultrasound, color-flow and Doppler spectral analysis. Degrees of stenosis were determined using SRU 2002 Consensus Panel Criteria. FINDINGS: Evidence of plaque formation within the carotid bifurcations most notably on the right. The right vertebral artery is not visualized. The left vertebral artery demonstrates antegrade flow. RIGHT: (cm per second) Proximal CCA: PSV: 93.8. EDV: 21.1. Mid-CCA: PSV: 78. EDV: 19.3. Distal CCA: PSV: 68.6. EDV: 18.8. Proximal ICA: PSV: -96.7. EDV: -28.1. Mid-ICA: PSV: -73.3. EDV: -23.5. Distal ICA: PSV: -82.7. EDV: -35.2. ICA/CCA: 1.41. ICA: -96.7. CCA: 68.6. LEFT: (cm per second) Proximal CCA: PSV: 134. EDV: 25.9. Mid-CCA: PSV: 85.6. EDV: 21.2. Distal CCA: PSV: -88. EDV: -21.2. Proximal ICA: PSV: 80.9. EDV: 22.3. Mid-ICA: PSV: -71.1. EDV: -28.3. Distal ICA: PSV: -63.6. EDV: -30.1. ICA/CCA: 0.92. ICA: 80.9. CCA: -88. IMPRESSION: 1. Atherosclerotic disease of the carotid bifurcations with less than 50 percent narrowing. 2. Non-visualization of the right vertebral artery. Bg Fu D.O. Neuroradiologist [employer] [email or web address] D& Transcribed: 5:38 p.m. NAYE/Dictated by: Ayad Fu MD @ 01/05/2018 5:35:00 PM (Electronic Signature) Report Signed by Proxy. MTDD
[2018-01-06] MEDS ORDERED: Acetaminophen 325 MG Tab PO PRN (14:54)
[2018-01-06] MEDS: atorvaSTATin 40 MG Tab PO SCH (20:06)
[2018-01-06] MEDS ORDERED: LORazepam Conc Solution 2 MG/ML 30 ML Bottle PO PRN (20:44)
[2018-01-06] MEDS ORDERED: Folic Acid 50 MG/10 ML MDV SUBCUT SCH (20:45)
[2018-01-06] MEDS ORDERED: LORazepam 1 MG Tab ONE (21:20)
[2018-01-06] MEDS: Thiamine 100 MG Tab PO SCH (21:23)
[2018-01-06] MEDS: Folic Acid 1 MG Tab PO SCH (21:23)
[2018-01-06] MEDS ORDERED: LORazepam 1 MG Tab PO PRN (21:31)
--- NOTE | 2018-01-07 07:41 | PCM.CONSN ---
- General Info Date of Service: 01/07/18 Admission Dx/Problem (Free Text): Admission Diagnosis/Problem Admission Diagnosis/Problem CVA, Cerebrovascular accident Subjective Update: He has had intermittent headache, frontal. He notes vision may be a little better. He does not note improvement in right sided weakness. - Review of Systems General: Reports: Weakness Pulmonary: Reports: No Symptoms Cardiovascular: Reports: No Symptoms Neurological: Reports: Headache, Numbness, Gait Disturbance - Patient Data Vitals - Most Recent: Last Vital Signs Temp 36.8 C 01/07/18 04:00 Pulse 61 01/07/18 04:00 Resp 19 01/07/18 04:00 BP 119/76 01/07/18 04:00 Pulse Ox 92 L 01/07/18 04:00 Weight - Most Recent: 90 kg I&O - Last 24 Hours: Intake & Output 01/06/18 01/07/18 01/07/18 22:59 06:59 14:59 Intake Total 480 850 Balance 480 850 Med Orders - Current: Current Medications Acetaminophen (Tylenol) 650 mg PO Q6H PRN PRN Reason: Pain Artificial Tears (Refresh Plus 0.5%) 0 each EYEBOTH ASDIRECTED PRN PRN Reason: Dry Eyes Last Admin: 01/05/18 18:19 Dose: 1 drop Aspirin (Aspirin) 81 mg PO DAILY [facility] Last Admin: 01/06/18 08:05 Dose: 81 mg Atorvastatin Calcium (Lipitor) 80 mg PO BEDTIME [facility] Last Admin: 01/06/18 20:06 Dose: 80 mg Clopidogrel Bisulfate (Plavix) 75 mg PO DAILY [facility] Last Admin: 01/06/18 08:05 Dose: 75 mg Ezetimibe (Zetia) 10 mg PO DAILY [facility] Last Admin: 01/06/18 11:54 Dose: 10 mg Folic Acid (Folic Acid) 1 mg PO DAILY [facility] Last Admin: 01/06/18 21:23 Dose: 1 mg Levothyroxine Sodium (Synthroid) 50 mcg PO DAILY [facility] Last Admin: 01/06/18 11:54 Dose: 50 mcg Lorazepam (Ativan) 0 mg PO Q4H PRN; Protocol PRN Reason: Anxiety Multivitamins/Minerals (Prosight) 1 tab PO DAILY [facility] Last Admin: 01/06/18 11:54 Dose: 1 tab Sodium Chloride (Saline Flush) 10 ml FLUSH ASDIRECTED PRN PRN Reason: Keep Vein Open Sodium Chloride (Saline Flush) 2.5 ml FLUSH ASDIRECTED PRN PRN Reason: Keep Vein Open Thiamine HCl (Vitamin B-1) 100 mg PO DAILY [facility] Last Admin: 01/06/18 21:23 Dose: 100 mg Discontinued Medications Folic Acid (Folic Acid) 1 mg SUBCUT DAILY [facility] Last Admin: 01/06/18 21:09 Dose: Not Given Iopamidol (Isovue Multipack-370 (76%)) 100 ml IVPUSH ONETIME ONE Stop: 01/05/18 14:13 Last Admin: 01/05/18 14:13 Dose: 100 ml Iopamidol (Isovue Multipack-370 (76%)) 100 ml IVPUSH ONETIME STA Stop: 01/06/18 10:47 Last Admin: 01/06/18 10:47 Dose: 100 ml Lorazepam (Ativan) Confirm Administered Dose 1 mg .ROUTE .STK-MED ONE Stop: 01/06/18 21:21 Last Admin: 01/06/18 21:30 Dose: 1 mg - Exam Physical Findings Comments:: Constitutional: No acute distress Neurological: Mental Status: General: Normal activity, good hygiene, appropriate appearance. Level of consciousness: Awake, alert. Orientation: Oriented to person, place, time and situation. Paucity of speech Cranial Nerves: Pupils equally round and reactive to light. Right homonymous hemianopsia. Gaze conjugate, EOMI. Sensation intact and symmetric to light touch. Mild right facial droop, mild dysarthria. Palate elevates symmetrically. Normal shrug bilaterally. Tongue full strength Motor: Normal tone in all groups. Right pronator drift. Power using MRC scale and R/L notation as follows: Deltoid 5/5, biceps 5/5, triceps 5/5, wrist extensors 5/5, wrist flexors 5/5, finger extensors 5/5, FDI 4+/5, hip flexors 4+ /5, knee extensors 5/5, knee flexors 4+/5, ankle dorsiflexors 5/5 Sensation: Sensation is decreased to temp right foot, decreased vibratory sense right hand and foot. Coordination: Finger to nose dysmetria on the right, heel to perdue intact Gait ataxic gait CT head 01/05/2018 hyperdense left [employer] CTA head 01/05/2018 occlusion of right vertebral and left [employer] MRI brain 01/05/2018 - acute infarct involving left thalamus and adjacent periventricular white matter CTA neck 01/06/2018 occlusion of right vertebral artery, high grades stenosis proximal left vertebral artery TTE 01/05/2018 EF 55% Labs 01/05/2018 TSH 4.5, Free T4 0.95; LDL 85, VLDL 48, tri 241, Hgb A1c 6.4 Consult PN Assessment/Plan Problem List Initiated/Reviewed/Updated: Yes My Orders Last 24 Hours: L [employer] stroke - see above for details of evaluation thus far. I suspect artery to artery embolism. There is long area of occlusion in the right vertebral artery which raises question of dissection although pathognomonic features are not observed. Initial treatment for dissection is either antiplatelet or anticoagulation as there has been no difference established with either treatment. I recommend maximal medical therapy for posterior circulation stenosis including high potency statin, dual antiplatelet therapy with ASA and Plavix, blood pressure and risk factor management. I also recommend 30 cardiac monitoring to rule out atrial fibrillation. I will defer to discharge planning and PT regarding inpatient vs. outpatient rehabilitation. I recommend visual field test in 3-4 weeks to see if vision has improved well enough to drive, work etc. He lives in [place], so I will make a referral to neurologist in [place].
[2018-01-07] MEDS: Levothyroxine 50 MCG Tab PO SCH (08:14)
[2018-01-07] MEDS: Beta-Carotene (Vitamin A) w/Vitamin C & E plus Minerals Tab PO SCH (08:14)
[2018-01-07] MEDS: Ezetimibe 10 MG Tab PO SCH (08:14)
[2018-01-07] MEDS: Folic Acid 1 MG Tab PO SCH (08:15)
[2018-01-07] MEDS: Thiamine 100 MG Tab PO SCH (08:15)
[2018-01-07] MEDS: Clopidogrel 75 MG Tab PO SCH (08:15)
[2018-01-07] MEDS: Aspirin 81 MG Tab.Chew PO SCH (08:15)
--- NOTE | 2018-01-07 08:17 | PCM.DCSUM1 ---
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 Patient woke up the day of admission with loss of vision of his right vision field of both eyes. He also noticed partial numbness with mild weakness of his right side. He ruled out for use of TPA due to unknown timing of onset. CT head reported hyperdense left [employer] , CTA heand and neck reported occlusion of right verebral and left [employer]. Patient was admitted and monitored for 48 hours on telemetry with no events. Dr. Tompkins was consulted and recommended dual antiplatelet therapy, high potency statin and 30 day cardiac monitoring. PT and OT were consulted. When patient was ready for discharge he preferred outpatient rehab. HE is to follow up with Dr. Portillo in [facility]. - Patient Instructions Diet: Regular Diet as Tolerated - Discharge Plan Prescriptions/Med Rec: Clopidogrel [Plavix] 75 mg PO DAILY #30 tablet Home Medications: Home Meds Aspirin 81 mg PO DAILY 01/05/18 [History] Ezetimibe 10 mg PO DAILY 01/05/18 [History] Hydrochlorothiazide 50 mg PO DAILY 01/05/18 [History] Levothyroxine Sodium [Levo-T] 50 mcg PO DAILY 01/05/18 [History] Metoprolol Succinate 100 mg PO DAILY 01/05/18 [History] Pravastatin Sodium 80 mg PO BEDTIME 01/05/18 [History] amLODIPine Besylate [Amlodipine Besylate] 10 mg PO DAILY 01/05/18 [History] Clopidogrel [Plavix] 75 mg PO DAILY #30 tablet 01/07/18 [Rx] Referrals: PCP,None [Primary Care Provider] - - Patient Data Vitals - Most Recent: Last Vital Signs Temp 36.8 C 01/07/18 04:00 Pulse 61 01/07/18 04:00 Resp 19 01/07/18 04:00 BP 119/76 01/07/18 04:00 Pulse Ox 92 L 01/07/18 04:00 Weight - Most Recent: 90 kg I&O - Last 24 hours: Intake & Output 05/01/07/18 01/07/18 22:59 06:59 14:59 Intake Total 480 850 Balance 480 850 Med Orders - Current: Current Medications Acetaminophen (Tylenol) 650 mg PO Q6H PRN PRN Reason: Pain Last Admin: 01/07/18 08:14 Dose: 650 mg Artificial Tears (Refresh Plus 0.5%) 0 each EYEBOTH ASDIRECTED PRN PRN Reason: Dry Eyes Last Admin: 01/05/18 18:19 Dose: 1 drop Aspirin (Aspirin) 81 mg PO DAILY [facility] Last Admin: 01/07/18 08:15 Dose: 81 mg Atorvastatin Calcium (Lipitor) 80 mg PO BEDTIME [facility] Last Admin: 01/06/18 20:06 Dose: 80 mg Clopidogrel Bisulfate (Plavix) 75 mg PO DAILY [facility] Last Admin: 01/07/18 08:15 Dose: 75 mg Ezetimibe (Zetia) 10 mg PO DAILY [facility] Last Admin: 01/07/18 08:14 Dose: 10 mg Folic Acid (Folic Acid) 1 mg PO DAILY [facility] Last Admin: 01/07/18 08:15 Dose: 1 mg Levothyroxine Sodium (Synthroid) 50 mcg PO DAILY [facility] Last Admin: 01/07/18 08:14 Dose: 50 mcg Lorazepam (Ativan) 0 mg PO Q4H PRN; Protocol PRN Reason: Anxiety Multivitamins/Minerals (Prosight) 1 tab PO DAILY [facility] Last Admin: 01/07/18 08:14 Dose: 1 tab Sodium Chloride (Saline Flush) 10 ml FLUSH ASDIRECTED PRN PRN Reason: Keep Vein Open Sodium Chloride (Saline Flush) 2.5 ml FLUSH ASDIRECTED PRN PRN Reason: Keep Vein Open Thiamine HCl (Vitamin B-1) 100 mg PO DAILY [facility] Last Admin: 01/07/18 08:15 Dose: 100 mg Discontinued Medications Folic Acid (Folic Acid) 1 mg SUBCUT DAILY [facility] Last Admin: 01/06/18 21:09 Dose: Not Given Iopamidol (Isovue Multipack-370 (76%)) 100 ml IVPUSH ONETIME ONE Stop: 01/05/18 14:13 Last Admin: 01/05/18 14:13 Dose: 100 ml Iopamidol (Isovue Multipack-370 (76%)) 100 ml IVPUSH ONETIME STA Stop: 01/06/18 10:47 Last Admin: 01/06/18 10:47 Dose: 100 ml Lorazepam (Ativan) Confirm Administered Dose 1 mg .ROUTE .[facility] ONE Stop: 01/06/18 21:21 Last Admin: 01/06/18 21:30 Dose: 1 mg
[2018-01-07] MEDS: Carboxymethylcellulose Sodium 0.5% Ophth Soln 0.4 ML UD Box of 30 EYEBOTH PRN (08:21)
[2018-01-07] MEDS ORDERED: Aspirin 81 MG Tab.Chew PO SCH (09:00)
--- NOTE | 2018-01-07 19:40 | ECHO ---
The echocardiogram report can be seen in this patient's EMR (Electronic Medical Record) in the Reports section. The echocardiogram report has also been scanned into PACS and can be seen there as well. JEREMIAH
== END 2018-01-07 09:39 | disposition home or self-care (01) | DRG 45 ==
LOC: MW.ED 07:35 → MW.ICU 09:20
PROVIDERS: ADMIT Internal Medicine; ATTEND Internal Medicine
DX: I63.531 Cerebral infarction due to unspecified occlusion or stenosis of right posterior cerebral artery (principal); I69.351 Hemiplegia and hemiparesis following cerebral infarction affecting right dominant side; H53.47 Heteronymous bilateral field defects; R79.89 Other specified abnormal findings of blood chemistry; I10 Essential (primary) hypertension; E03.9 Hypothyroidism, unspecified; E78.5 Hyperlipidemia, unspecified; Z79.899 Other long term (current) drug therapy; Z79.82 Long term (current) use of aspirin
CPT/HCPCS: 36415; 70450; 70450-26; 70496; 70496-26; 70498; 70498-26; 70551; 70551-26; 80048; 80053; 80061; 83036; 84439; 84443; 84484; 85025; 85610; 85730; 93005; 93270; 93306; 93880; 93880-26; 97110-GP; 97161-GP; 97166-GO; 99285-25; A9270-GY; Q9967